=== PATIENT | male | born 1975 | race Caucasian/White ===

== ENCOUNTER → 2016-07-13 17:30 | Emergency (ER) | payer MEDICAID | END | disposition home or self-care (01) | LOC: CFTX 17:30 | DX: S61.412A Laceration without foreign body of left hand, initial encounter (principal); F17.210 Nicotine dependence, cigarettes, uncomplicated; Z91.040 Latex allergy status; Z23 Encounter for immunization; W18.09XA Striking against other object with subsequent fall, initial encounter; Y93.89 Activity, other specified; Y92.009 Unspecified place in unspecified non-institutional (private) residence as the place of occurrence of the external cause | CPT/HCPCS: 12001; 90471; 90715; 99283 ==

== ENCOUNTER 2016-07-23 14:55 | Emergency (ER) | payer MEDICAID | END 2016-07-23 15:06 | disposition home or self-care (01) | LOC: CED 14:55 | DX: S61.412D Laceration without foreign body of left hand, subsequent encounter (principal); F17.200 Nicotine dependence, unspecified, uncomplicated; Z91.040 Latex allergy status | CPT/HCPCS: 99281 ==